=== PATIENT | female | born 1975 | race Caucasian/White ===

== ENCOUNTER 2021-12-21 19:14 | Emergency (ER) | payer OTHER, SELFPAY ==
[2021-12-21 19:25] VITALS: BP 204/111; PULSE 97; RESP 16; TEMP 37.2; O2SAT 100
--- NOTE | 2021-12-21 19:59 | ED.URI ---
HPI - URI/Sore Throat General Chief Complaint: Dental/Oral Stated Complaint: Sinus Pain Time Seen by Provider: 12/21/21 19:59 Source: patient, RN notes reviewed and old records reviewed Mode of arrival: ambulatory Limitations: no limitations History of Present Illness HPI Narrative: 46 YEAR OLD FEMALE WHO PRESETS TO [facility] WITH COMPLAINTS OF LEFT SIDED DENTAL PAIN AND SWELLING OF HER FACE SINCE THIS AFTERNOON. PATIENT STATES THAT SHE HAD BEEN SNEEZING A LOT AND THOUGHT THAT SHE HAD ALLERGIES. SHE REPORTS THAT WHEN SHE AWOKE FROM [place] TODAY SHE NOTED THE LEFT SIDE OF HER FACE SWOLLEN AND PAINFUL. PATIENT HAS NUMEROUS BROKEN TEETH, missing and decayed teeth. Patient reports that she has been without her blood pressure medication for some time due to lack of any insurance. MD elicited complaint: other (SWELLING) Pertinent past history: other (dental problems) Onset (ago): day(s) (1) Severity: moderate Pain scale (0-10): 4 Able to tolerate fluids by mouth: Yes Treatments prior to arrival: acetaminophen and ibuprofen Related Data Home Medications Medication Instructions Recorded Confirmed oxybutynin chloride 10 mg 10 mg PO DAILY 12/21/21 12/21/21 tablet,extended release 24 hr Allergies Allergy/AdvReac Type Severity Reaction Status Date / Time No Known Allergies Allergy Verified 12/21/21 20:08 Review of Systems Review of Systems: CONSTITUTIONAL: Denies fever, chills, or sweats. ENT: Denies rhinorrhea, congestion, sore throat, or otalgia. Reports dental pain,facial swelling on left CARDIOVASCULAR: Denies chest pain, palpitations, or edema. RESPIRATORY: Denies cough or dyspnea. SKIN: Denies rash or itching. MUSCULOSKELETAL: Denies myalgia. NEUROLOGIC: Denies headache All systems reviewed & are unremarkable except as noted in HPI and below [facility] Past Medical History Medical History (Updated 12/28/21 @ 12:54 by Geovanna Jackson NP) Hypertension Right ankle joint deformity Surgical History Surgical History (Updated 12/28/21 @ 12:47 by Geovanna Jackson NP) History of ankle surgery numerous surgeries at [facility] for nerve damage History of carpal tunnel release right Social History Social History (Updated 12/28/21 @ 12:48 by Geovanna Jackson NP) Smoking status: Current every day smoker Tobacco type: cigarettes Additional smoking assessment comments: reports 3 cigarettes daily Alcohol intake: unknown Substance use type: does not use Living arrangements: with family Gender identity (if verbalized by the patient): Female Comments At time of signature, agree with nursing past medical, surgical, social and family history. There is no relevant family history pertinent to the presenting complaint Exam Narrative: GENERAL: Well-appearing, well-nourished, and in no acute distress. HEAD: Normocephalic, atraumatic. EYES: PERRLA and EOMI. ENT: Nares clear, no rhinorrhea or epistaxis. Mucous membranes moist. Missing teeth, broken teeth, caries, SWELLING TO THE LEFT SIDE OF FACE. No [place] angina noted, no specific tooth noted to be abscessed NECK: Supple. NO LYMPHADENOPATHY CHEST: Clear to auscultation. No respiratory distress.SAO2 100% on room air HEART: Regular rate and rhythm. No murmur heard. Normal peripheral pulses. SKIN: Warm, dry, no rash. NEURO: No focal deficits. Alert and oriented x3. Course Course Emergency Course: Patient is aware of diagnosis, understands and agrees to treatment plan. Anticipatory guidance given. Patient agrees to follow-up as directed and is aware of reasons to seek care at the emergency department. Portions of this record may have been created with voice recognition software Level of Care: [facility] Visit Vital Signs Vital signs: Vital Signs Temperature 37.2 C 12/21/21 19:25 Pulse Rate 97 12/21/21 19:25 Respiratory Rate 16 12/21/21 19:25 Blood Pressure 204/111 H 12/21/21 19:25 Pulse Oximetry 100 12/21/21 19:25 Oxygen Delivery
[2021-12-21 20:40] VITALS: BP 210/108
== END 2021-12-21 20:40 | disposition home or self-care (01) ==
PROVIDERS: Emergency Provider Registered Nurse
DX: K08.89 Other specified disorders of teeth and supporting structures (principal); R03.0 Elevated blood-pressure reading, without diagnosis of hypertension
CPT/HCPCS: 99213; G0463